=== PATIENT | female | born 1950 | race Caucasian/White ===

== ENCOUNTER → 2024-03-07 13:22 | Outpatient (REF) | payer MEDICARE, SELFPAY ==
[2024-03-07 13:54] LABS: % Basophils 0.5 % (0-2); % Eosinophils 1.5 % (0-6); % Immature Granulocytes 0.3 % (0-0.5); % Lymphocytes 13.1 % (20.5-51.1); % Monocytes 7.7 % (1.7-9.3); % Neutrophils 76.9 % (42.2-75.2); Absolute Basophils 0.1 10^3/uL (0-0.2); Absolute Eosinophils 0.2 10^3/uL (0-0.7); Absolute Lymphocytes 1.4 10^3/uL (1.2-3.4); Absolute Monocytes 0.9 10^3/uL (0.1-0.6); Absolute Neutrophils 8.5 10^3/uL (1.4-6.5); Hematocrit 45.5 % (37.0-47.0); Hemoglobin 15.3 g/dL (12.0-16.0); Mean Corp Hgb Conc. 33.6 g/dL (33.0-37.0); Mean Corpuscular Hgb 31.5 pg (27.0-31.0); Mean Corpuscular Volume 93.8 fL (81.0-99.0); Mean Platelet Volume 10.2 fL (7.4-10.4); Nucleated Red Blood Cells % 0 %; Platelet Count 236 10^3/uL (130-400); Red Blood Cell Count 4.85 10^6/uL (4.20-5.40); Red Cell Dist. Width 13.4 % (11.5-14.5); Urine Albumin Negative (Neg - Trace); Urine Bilirubin Negative (Negative); Urine Character Clear (Clear); Urine Color Yellow; Urine Glucose Negative (Negative); Urine Ketone Trace (Negative); Urine Leukocyte Negative (Negative); Urine Nitrite Negative (Negative); Urine Occult Blood 1+ (Negative); Urine Specific Gravity 1.015 (<1.030); Urine Urobilinogen Negative (Neg - 1+); Urine pH 6.5 (5.0-9.0)
[2024-03-07 14:05] LABS: Blood Urea Nitrogen 21 mg/dl (7-17); Calcium 10.2 mg/dl (8.4-10.2); Carbon Dioxide 29 mmol/L (22-30); Chloride 101 mmol/L (98-107); Glucose 102 mg/dl (70-99); Potassium 4.4 mmol/L (3.5-5.1); Sodium 139 mmol/L (135-145); Urine Bacteria Few (Negative); Urine Red Blood Cell 0-2 /HPF (0-2); Urine White Cell 0-2 /HPF (0-5); eGFR > 60.00
== END ==
LOC: RAD 13:22
PROVIDERS: ATTENDING PHYSICIAN Student in an Organized Health Care Education/Training Program
DX: R10.31 Right lower quadrant pain (principal)
CPT/HCPCS: 36415; 74177; 80069; 81003; 81015; 85025; Q9967

== ENCOUNTER 2024-03-07 19:24 | Inpatient (IN) | payer MEDICARE, SELFPAY ==
[2024-03-07 16:41] VITALS: BP 168/93
--- NOTE | 2024-03-07 17:50 | ED.GENMED ---
History of Present Illness
General
Chief Complaint: Abdominal Pain
Source: patient
Exam Limitations: none
Time Seen by Provider: 03/07/24 17:29
History of Present Illness
History of Present Illness:
73-year-old female 2 days of lower abdominal pain. Moderate in nature. No history of same. Some constipation issues. No response to stool softeners at home. No nausea or vomiting. Had outpatient labs and CT scan. Consistent with stercoral
colitis with pneumatosis. Work for further care.
Past History
Past History
ED Past Medical History: Hypercholesterolemia and Other (Hypogammaglobulinemia)
ED Past Surgical History: None
Review of Systems
Review of Systems
All Other Systems: Not applicable
Constitutional: Denies fever or chills
Phy Exam
Physical Exam
Physical Exam:
GENERAL: Alert and oriented in no apparent distress
EYE: Orbits normal.
NECK: Supple
CARDIAC: Regular rate and rhythm without any obvious murmurs.
LUNGS: Clear breath sounds,normal
ABDOMEN: Soft, moderate diffuse lower abdominal tenderness. No rebound or guarding no mass or hernia
NEUROLOGICAL: Alert and oriented , grossly non-focal
SKIN: Warm and dry, no rash or lesion, no discoloration, skin intact.
MUSCULOSKELETAL: No edema,no deformity.Good color
PSYCH: Normal and appropriate interaction.
Course
Orders/Labs/Results
Orders:
Orders
03/07/24 Dinner
Full Liquids
03/07/24 17:49
IV Insert/Care/Rem.- Treatment PRN
0.9% Sodium Chloride 500 ml [Nss] 500 ml IV BOLUS
Piperacillin/Tazo 3.375 Gram [Zosyn] 3.375 gram in 50 ml IV NOW
03/07/24 18:28
Admit/Transfer Patient As Directed
Co-Sign Provider:
Level of Care: Inpatient admission
Assign to:: Medical/Surgical
Physician / Group: harinder cook
Diagnosis: acute sigmoid colitis
Reason for Hospitalization: sigmoid colitis
Expected length of stay greater than two midnights?: Yes
ELOS- Estimated Length of Stay in days: 4
I certify the patient meets the requirements for IP care: Yes
Code Status As Directed
Resuscitation Status: Full Code
03/07/24 18:31
PRN Pain Medication Management As Directed
May give lesser potent ordered pain med per pt: Yes
preference::
Protocol:: Medication orders for pain may be administered in a
manner that supports deferring to patient preference
when the pt is:
- Requesting an ordered lesser potent pain medication.
Least to most potent pain medications are defined
as: acetaminophen < NSAID < tramadol < opioids
(morphine, oxycodone, hydromorphone).
- Requesting a lesser dose of the same medication IF
ORDERED.
- Requesting a less intrusive route of administration
if both routes are prescribed by the provider (PO <
IV).
03/07/24 18:32
SURGICAL CONSULT Routine
Consulting Provider: Eduar Kamara
Was physician already notified: Yes
Reason for consult: sigmoid colitis
03/07/24 20:32
0.9% Sodium Chloride 1000 ml [Nss] 1,000 ml IV 80 mls/hr
Acetaminophen [Tylenol] 650 mg PO Q4HPRN PRN
03/07/24 20:32
Activity As Directed
Activity Level: As Tolerated
Intake/ Output As Directed
Frequency: Per unit guidelines
Pneumatic Compression Sleeves As Directed
Type: Knee high
Vital Signs As Directed
Frequency: Per unit guidelines
DX Deep Vein Thrombosis Video Routine
03/08/24 02:00
Piperacillin/Tazo 3.375 Gram [Zosyn] 3.375 gram in 50 ml IV Q6H
03/08/24 06:00
Complete Blood Count/With Diff IN AM
Comprehensive Metabolic Panel IN AM
03/08/24 08:00
Ezetimibe [Zetia] 10 mg PO DAILY
Polyethylene Glycol Powder [Miralax] 17 grams PO DAILY
03/09/24 06:00
Complete Blood Count/With Diff IN AM
Comprehensive Metabolic Panel IN AM
03/10/24 06:00
Complete Blood Count/With Diff IN AM
Comprehensive Metabolic Panel IN AM
Vital Signs
Initial and Last Documented VS:
Initial Vital Signs
Temp Pulse Resp BP Pulse Ox
98.6 F 83 18 168/93 98
03/07/24 16:41 03/07/24 16:41 03/07/24 16:41 03/07/24 16:41 03/07/24 16:41
Last Documented Vital Signs
Temp Pulse Resp BP Pulse Ox
100.0 F 83 17 135/83 97
03/07/24 20:33 03/07/24 20:33 03/07/24 20:33 03/07/24 20:33 03/07/24 20:33
MDM/Problems Addressed
Differential Diagnosis Includes:
Stercoral colitis with pneumatosis. Discussed with colorectal. Admit Zosyn MiraLAX.
*Pulse Oximetry
Patient hypoxic: no
*Critical Care Note
Total Time (30-74mins, 75-104mins- exclusive of procedures): Not Applicable
ED Attending Note
-
Portions of this chart may have been created with voice recognition software.� Occasional wrong word or��sound alike� substitutions may have occurred due to the inherent limitations of voice recognition software.
Discharge Plan
Departure
Patient Disposition: Admit
Date of Disposition: 03/07/24
Time of Disposition: 17:51
Presentation/result/management discussed w/ accepting MD/DO: Colorectal
Discharge Problem:
Stercoral colitis with pneumatosis
Interventions
Interventions:
*Risk Screen - Suicide Last Done: 03/07/24 20:41
*General Assessment Last Done: 03/07/24 16:41
*Neglect/Abuse Screening Last Done: 03/07/24 19:11
ED- Fall Risk Assessment Last Done: 03/07/24 19:11
*ED COVID-19 Vaccine History Last Done: 03/07/24 20:41
*Nursing Disposition Last Done: 03/07/24 20:32
JS-Sptygh-Ygkiahxuux Assessment Last Done: 03/07/24 19:11
Discharge Date and Time
Discharge Date/Time: 03/07/24 20:32
--- NOTE | 2024-03-07 18:03 | HPS.HSE ---
Family Physician
-
Family Physician:
Chief Complaint
-
Lower abdominal pain x 2 days
History of Present Illness
73-year-old female complaining of lower abdominal pain over the last 2 days with constipation and no response to MiraLAX x 2 doses at home. She had outpatient CAT scan showing stercoral colitis with pneumatosis and was sent to ER for evaluation.
She denies fever, chills, nausea, vomiting, chest pain, palpitations, shortness breath, cough, urinary symptoms. She reports she has chronic constipation only goes a few rajwinder daily. She has been taking fiber 1 daily. She reports she has never
brought up her constipation issues to her PCP or prior GI in [place]. Her last colonoscopy was in 2019 she states showed diverticulosis otherwise negative. She has past medical history of HLD, hypogammaglobulinemia, constipation, diverticulosis.
Medical History
Past Medical History
Past Medical History: Reports Other
Additional Past Medical History:
HLD
hypogammaglobulinemia
Diverticulosis
constipation
Past Surgical History: Reports Other
Additional Past Surgical History:
microdiscectomy lumbar 1994
Tonsillectomy age 4
Social History
Tobacco: Non-smoker
Alcohol: Occasional (1 to 2 glasses wine a week)
Drug: None
Personal:
Living: With Family ( [place])
Employment: Retired
Family History
Family History: Other (Mother CHF renal disease Alzheimer's age 97, father from grand mal seizure age 90, 1 brother living unsure)
Allergies / Home Medications
Allergies reflects when Allergies were last updated in [facility].
Home Medications with original date entered in [facility]
Allergy/Medication List:
Allergies
Allergy/AdvReac Type Severity Reaction Status Date / Time
No Known Allergies Allergy Unverified 03/07/24 16:41
Home Medications
atorvastatin 80 mg tablet 80 mg PO DAILY 03/07/24
ezetimibe 10 mg tablet 10 mg PO DAILY 03/07/24
loperamide 2 mg tablet (Imodium A-D) 1 mg PO DAILY 03/07/24
rcyrmgra-uluh-fftj 8 mg-folic 400 mcg-K 50 mcg-lutein 300 mcg tablet (Centrum Silver Women) 1 tab PO DAILY 03/07/24
polyethylene glycol 3350 17 gram oral powder packet (Miralax) 17 g PO DAILYPRN PRN constipation 03/07/24
Review of Systems
-
History Source: Patient
A 12 point ROS was completed and negative except as noted: Yes
Constitutional: Denies Fever or Chills
EENT: Denies Sore Throat or Runny Nose
Respiratory: Denies Cough or Trouble Breathing
Cardiac: Denies Chest Pain or Diaphoresis
Abdomen/GI: Reports Abdominal Pain (Left lower quadrant, suprapubic) and Constipated; Denies Nausea, Vomiting or Diarrhea
: Denies Dysuria, Frequency, Flank Pain or Incontinence
Musculoskeletal: Denies Joint Pain or Edema
Skin: Denies Itching or Rash
Neurological: Denies Dizzy or Headache
Endocrine: Reports No Symptoms
Hematologic/Lymphatic: Reports No Symptoms
Psych: Reports Calm
Physical Exam
Vital Signs
Vital Signs
Temp Pulse Resp BP Pulse Ox
98.6 F 83 18 168/93 98
03/07/24 16:41 03/07/24 16:41 03/07/24 16:41 03/07/24 16:41 03/07/24 16:41
Physical Exam
General: Comfortable and Conversant; No Pain, Fever or Chills
HEENT: NormoCephalic, Anicteric, Moist mucous membranes, PERRLA and Schwana Conjunctivae
Respiratory: Clear; No Wheezes, Rales or Rhonchi
Cardiac: S1/S2 and Regular Rhythm; No Murmur, Rub, Gallop or Peripheral Edema
Breast: Deferred by me
GI: Soft, Non Distended, Normal Bowel Sounds, Tender (Left lower quadrant, suprapubic) and No Hepatosplenomegaly
Rectal: Deferred by Provider
Genito-urinary: Deferred by me
Musculoskeletal: No Clubbing, No Cyanosis and No Edema
Skin: Warm and Dry; No Rash or Jaundice
Neuro: AO x 3, No Motor Deficits, Nonfocal/grossly intact, Cranial Nerves Intact and No Sensory Deficits; No Slurred Speech, Facial Droop or Tremors
Psych: Calm
Impression/Plan
-
Impression/plan:
Admit to MedSurg
#Acute stercoral colitis sigmoid colon
HX constipation - pt never has discussed with pcp or prior GI
WBC 11 with left shift, afebrile, normotensive
-Consult Dr. Kamara
-IV Zosyn
-Iv NSS
-MiraLAX per colorectal recommendation
pt has been taking miralax daily x 2 days no improvement
-pt advised to stop taking immodium routinely this is causing her constipation
last colonoscopy9 [place] [facility]) was in 2019 she states showed diverticulosis otherwise negative.
CT abdomen pelvis with IV contrast:
1. Large amount of fecal material throughout the sigmoid colon with a long segment of moderate circumferential wall thickening and
pericolonic inflammation. Possible mild pneumatosis in the colonic wall. The findings are most suggestive of
ACUTE STERCORAL COLITIS in the SIGMOID COLON. Acute diverticulitis or an acute infectious colitis are alternative diagnostic possibilities.
2. Severe left-sided pelvic congestion syndrome with marked distention of the left ovarian vein.
3. Multiple benign-appearing hepatic and left renal cysts.
4. Moderate to severe chronic discogenic degenerative disease at L5/S1.
#HLD
Continue atorvastatin 80 mg daily, Zetia 10 mg daily
#Hypogammaglobulinemia hx
#Moderate to severe DDD L5-S1 per CT
-History of microdiscectomy lumbar 1994
DVT prophylaxis
SCD's
Full code
--- NOTE | 2024-03-07 18:25 | W.PN.UPDATE ---
Update Note
Progress Note Update
This note serves as an addendum to the H&P by helminthologist MELLO Flor SAM,
HPI
73F HLD, hypogammaglobulinemia pw lower abdominal pain over the last 2 days with constipation and no response to stool softeners at home.
ROS: denies fever, chills, nausea, vomitingt medical history of
Vital Signs
Temp Pulse Resp BP Pulse Ox
98.6 F 83 18 168/93 98
03/07/24 16:41 03/07/24 16:41 03/07/24 16:41 03/07/24 16:41 03/07/24 16:41
CTT abdomen pelvis with IV contrast:
1. Large amount of fecal material throughout the sigmoid colon with a long segment of moderate circumferential wall thickening and pericolonic inflammation. Possible mild pneumatosis in the colonic wall. The findings are most suggestive of ACUTE
STERCORAL COLITIS in the SIGMOID COLON.
Acute diverticulitis or an acute infectious colitis are alternative diagnostic possibilities.
2. Severe left-sided pelvic congestion syndrome with marked distention of the left ovarian vein.
3. Multiple benign-appearing hepatic and left renal cysts.
4. Moderate to severe chronic discogenic degenerative disease at L5/S1.
A/P
Acute stercoral colitis sigmoid colon
Afebrile, normotensive
WBC 11 with left shift
- IV Zosyn
- MiraLAX per colorectal recommendation
- IVF
- CRS consult
DVT Px: SCD
Full code
IP MS
[2024-03-07 19:11] VITALS: BMI 21.5
[2024-03-07] MEDS: ZOSYN 50 IV (20:12)
[2024-03-07] MEDS: NSS 500 IV (20:17)
[2024-03-07 20:33] VITALS: BP 135/83; BMI 20.4
[2024-03-07] MEDS: NSS 1000 IV (21:09)
[2024-03-07] MEDS: TYLENOL 650 MG PO (21:15)
[2024-03-07 23:14] VITALS: BP 116/71
--- NOTE | 2024-03-07 23:16 | PTCARENOTE ---
pt transported from ED to 3W on stretcher. Pt independent from stretcher to bed, all vitals obtained and stable. Pt AAOX3, oriented to room, call james within reach, pleasant and cooperative. Will continue to monitor.
[2024-03-08] MEDS: ZOSYN 50 IV ×4 (02:25→20:02)
[2024-03-08 07:46] VITALS: BP 131/77
[2024-03-08 08:32] LABS: % Basophils 0.4 % (0-2); % Eosinophils 2.7 % (0-6); % Immature Granulocytes 0.4 % (0-0.5); % Lymphocytes 13.8 % (20.5-51.1); % Monocytes 7.9 % (1.7-9.3); % Neutrophils 74.8 % (42.2-75.2); Absolute Eosinophils 0.2 10^3/uL (0-0.7); Absolute Lymphocytes 1.1 10^3/uL (1.2-3.4); Absolute Monocytes 0.6 10^3/uL (0.1-0.6); Absolute Neutrophils 5.8 10^3/uL (1.4-6.5); Hematocrit 39.1 % (37.0-47.0); Hemoglobin 13.4 g/dL (12.0-16.0); Mean Corp Hgb Conc. 34.3 g/dL (33.0-37.0); Mean Corpuscular Hgb 31.8 pg (27.0-31.0); Mean Corpuscular Volume 92.9 fL (81.0-99.0); Mean Platelet Volume 10.7 fL (7.4-10.4); Nucleated Red Blood Cells % 0 %; Platelet Count 191 10^3/uL (130-400); Red Blood Cell Count 4.21 10^6/uL (4.20-5.40); Red Cell Dist. Width 13.5 % (11.5-14.5); White Blood Cell Count 7.8 10^3/uL (4.8-10.8)
[2024-03-08] MEDS: ZETIA 10 MG PO (08:47)
[2024-03-08] MEDS: MIRALAX 17 GRAMS PO ×2 (08:47→20:02)
[2024-03-08 08:58] LABS: ALT (SGPT) 26 U/L (0-35); AST (SGOT) 32 U/L (14-36); Albumin 3.9 g/dl (3.5-5.0); Alkaline Phosphatase 58 U/L (38-126); Blood Urea Nitrogen 13 mg/dl (7-17); Calcium 9.3 mg/dl (8.4-10.2); Carbon Dioxide 23 mmol/L (22-30); Chloride 107 mmol/L (98-107); Estimated Creatinine Clearance 66 ml/min; Glucose 70 mg/dl (70-99); Potassium 4.2 mmol/L (3.5-5.1); Sodium 143 mmol/L (135-145); Total Bilirubin 1.7 mg/dl (0.2-1.3); Total Protein 5.8 g/dl (6.3-8.2); eGFR > 60.00
[2024-03-08] MEDS: NSS 1000 IV ×2 (10:53→20:19)
[2024-03-08] MEDS: TYLENOL 650 MG PO (10:58)
--- NOTE | 2024-03-08 11:35 | CON.GS ---
Addendum entered and electronically signed by Tian Ayoub MD 03/08/24 16:26:
Patient seen and examined.
Patient is a 73 yo F with a PMH of HLD, hypogammaglobulinemia, and s/p lumbar microdiscectomy who presented to the ER with lower abdominal discomfort and severe constipation. Chronic issues with constipation. She denies taking regular stool
softeners. She does admit to intermittent Imodium use. She does report using fiber. Symptoms began approximately 2 days ago. Her last bowel movement was approximately 3 days ago. She tried MiraLAX at home without any improvement. She denies
any nausea or vomiting. She currently denies any worsening abdominal pain. She is passing flatus. She denies any bloody stools. Last colonoscopy was a few years ago and reported to be normal.
Gen: NAD
Abd: soft, NT/ND, non-peritoneal
Rectal: no masses or hemorrhoids, release of air, unable to disimpact or remove any stool within rectal vault, herder stool barely appreciated more proximally, small release of soft stool on exit
Patient is a 73 yo F presenting with stercoral colitis
Clinically stable. Low grade temp of 100.0. Initially with mild leukocytosis which is now resolved. Abdominal discomfort present but minimal. Attempted disimpaction at bedside but no stool noted in rectal vault. Recommend aggressive bowel regimen.
Role of surgical intervention for perforation was briefly reviewed.
--OK for liquid diet
--Continue ABX
--Give soapsuds enema, discussed with patient's nurse
--MOM x1 dose now and later this evening and Miralax BID
--Analgesics as needed
--Will follow
Original Note:
Consultation
-
Date/Time Consultation Requested: 03/07/242212
Requesting Provider: Danae
Reason for Consultation: sigmoid colitis
Medical History
-
Chief Complaint: lower abdominal pain
History of Present Illness:
Ms Mercer is a 73 yo female with a h/o hypogammaglobulinemia with last colonoscopy done in 2014 which she reports was benign other than diverticulosis who presented through the ED yesterday with lower abdominal pain and constipation. She notes that
her last BM was 3 days ago and small and hard. She has been passing flatus. She does note baseline issues with constipation and reports using FiberOne. She has additionally been taking Miralax daily at home for the 2-3 days leading up to her
admission without much benefit. She had outpatient CT imaging yesterday with stercoral colitis noted and was advised to present for evaluation given these findings. Overnight, she had a low grade temp of 100.0, otherwise no fevers or chills. She
reports some lower abdominal pain which is consistently about a 3/10 and improved with tylenol but does every once in a while have more severe sharp pains across the abdomen. She denies nausea or vomiting.
Past Medical History
Past Medical History: Hypercholesterolemia and Other (hypogammaglobulinemia)
Past Surgical History: Orthopedic (lumbar microdiscectomy 1994) and Tonsilectomy
Social History
Tobacco: Non-Smoker
Alcohol: Occasional
Drug: None
Personal:
Living: With Family
Family History
Family History: Reviewed & Not Pertinent
Allergies / Home Medications
Allergy/AdvReac Type Severity Reaction Status Date / Time
No Known Allergies Allergy Unverified 03/07/24 16:41
�Medication �Instructions �Recorded �Confirmed �Type
atorvastatin 80 mg tablet 80 mg PO DAILY High Cholesterol 03/07/24 03/07/24 History
ezetimibe 10 mg tablet 10 mg PO DAILY High Cholesterol 03/07/24 03/07/24 History
loperamide 2 mg tablet (Imodium 1 mg PO DAILY diarrhea 03/07/24 03/07/24 History
A-D)
fvdjxjrm-yjpc-xaec 8 mg-folic 400 1 tab PO DAILY Supplement 03/07/24 03/07/24 History
mcg-K 50 mcg-lutein 300 mcg tablet
(Centrum Silver Women)
polyethylene glycol 3350 17 gram 17 g PO DAILYPRN PRN constipation 03/07/24 03/07/24 History
oral powder packet (Miralax)
Review of Systems
-
History Source: Patient and Family
All other systems: Negative unless noted
A 10 point review of systems was completed, and was negative except as per HPI.
Physical Exam
Vital Signs
Temp Pulse Resp BP Pulse Ox
98.1 F 73 19 131/77 97
03/08/24 07:46 03/08/24 07:46 03/08/24 07:46 03/08/24 07:46 03/08/24 08:00
03/07/24 03/08/24 03/09/24
06:59 06:59 06:59
Actual Weight 57.351 kg
Body Mass Index (BMI) 20.4
Lab Results
03/08/24 06:43
03/08/24 06:43
WBC 7.8 10^3/uL (4.8-10.8) 03/08/24 06:43
Hgb 13.4 g/dL (12.0-16.0) 03/08/24 06:43
Hct 39.1 % (37.0-47.0) 03/08/24 06:43
Plt Count 191 10^3/uL (130-400) 03/08/24 06:43
Abs Immat Gran (auto) 0.0 10^3/uL (0-0.05) 03/08/24 06:43
Neutrophils % 74.8 % (42.2-75.2) 03/08/24 06:43
Physical Exam
General: Well Developed and Well Nourished
HEENT: Moist Mucous Membranes
Respiratory: Non Labored Respirations
GI: Soft, Non Tender and Distended (minimal)
Rectal: Brown and Other (no significant stool in rectal vault); Negative Masses Palpated
Skin: Warm and Dry
Neuro: Awake and Alert
Psych: Calm
Data Reviewed
-
CT Scan: Image Personally Visualized and interpreted, Report Reviewed by me, Discussed with Physician, Discussed with Patient and Discussed with Family
Labs: Labs Reviewed by me, Discussed with Physician, Discussed with Patient and Discussed with Family
Old Records: Reviewed
Assessment / Plan
-
73 yo female presenting with constipation and lower abdominal pain with last BM 3 days ago with outpatient CT imaging demonstrating concern for stercoral colitis with significant stool burden. Low grade temp of 100.0. Initially with mild
leukocytosis which is now resolved. Abdominal discomfort present but minimal. Attempted disimpaction at bedside but no stool noted in rectal vault.
--Ok for liquid diet
--Continue ABX
--Give soapsuds enema, discussed with patient's nurse
--MOM x1 dose now and Miralax BID
--Analgesics as needed
--Will follow
--- NOTE | 2024-03-08 14:28 | W.PN.HOSP.TC ---
Today's Communication/Plan
-
Continue Miralax per Colorectal Surgery team
Continue antibiotics
Appreciate colorectal surgery evaluation
Assessment / Plan
Assessment / Plan
Physical Exam
General: Not in acute distress
HEENT: Normocephalic
Respiratory: CTAB
Cardiac: S1/S2 and Regular Rhythm
GI: Soft, Non Distended, Normal Bowel Sounds, Tender (Left lower quadrant, suprapubic)
Musculoskeletal: No Cyanosis and No Edema
Skin: Warm and Dry
Neuro: AAO x 3, Nonfocal/grossly intact
Psych: Calm
Assessment/Plan
73-year-old female with history of chronic constipation, presented complaining of lower abdominal pain over the 2 days (prior to presentation) with constipation and no response to MiraLAX x 2 doses at home. She had outpatient CAT scan showing
stercoral colitis with pneumatosis and was sent to the ER for evaluation. She has past medical history of HLD, hypogammaglobulinemia, constipation, diverticulosis.
#Presentation with Constipation and no response to stool softeners at home
#Acute stercoral colitis sigmoid colon
#History of constipation - pt never has discussed with pcp or prior GI
#History of Diverticulosis
-Consulted Dr. Kamara, appreciate evaluation and recommendations
-Continue IV Zosyn
-Diet: Full Liquids and as per colorectal surgery
-MiraLAX per colorectal surgery recommendations
-Patient advised to stop taking Imodium routinely this is causing her constipation
last colonoscopy9 [facility]) was in 2019 she states showed diverticulosis otherwise negative.
CT abdomen pelvis with IV contrast (as per radiologist's report):
1. Large amount of fecal material throughout the sigmoid colon with a long segment of moderate circumferential wall thickening and
pericolonic inflammation. Possible mild pneumatosis in the colonic wall. The findings are most suggestive of
ACUTE STERCORAL COLITIS in the SIGMOID COLON. Acute diverticulitis or an acute infectious colitis are alternative diagnostic possibilities.
2. Severe left-sided pelvic congestion syndrome with marked distention of the left ovarian vein.
3. Multiple benign-appearing hepatic and left renal cysts.
4. Moderate to severe chronic discogenic degenerative disease at L5/S1.
#Hyperlipidemia
-Continue atorvastatin 80 mg daily, Zetia 10 mg daily
#History of Hypogammaglobulinemia
#Moderate to severe DDD L5-S1 per CT
-History of microdiscectomy lumbar 1994
DVT Prophylaxis: Lovenox and SCD's
Code Status: Full code
Anticipated Discharge: > 48 hours
Subjective/Interval History
-
Date of Service: March 08, 2024
Patient was seen and examined. She still has lower abdominal tenderness and some pain, maybe improved.
Objective Data
-
Labs:
Laboratory Results
03/08/24
06:43
WBC 7.8
Hgb 13.4
Hct 39.1
Plt Count 191
Sodium 143
Potassium 4.2
Chloride 107
Carbon Dioxide 23
BUN 13
Creatinine 0.7
Glucose 70
Calcium 9.3
Total Bilirubin 1.7 H
AST 32
ALT 26
Alkaline Phosphatase 58
Vital Signs:
Vital Signs
Temp Pulse Resp BP Pulse Ox
98.1 F 73 19 131/77 97
03/08/24 07:46 03/08/24 07:46 03/08/24 07:46 03/08/24 07:46 03/08/24 08:00
I&O
03/07/24 03/08/24 03/09/24
06:59 06:59 06:59
Intake Total 480 / 480
Balance 480 / 480
[2024-03-08 15:09] VITALS: BP 134/81
[2024-03-08] MEDS: LIPITOR 80 MG PO (15:24)
[2024-03-08] MEDS: MILK OF MAGNESIA 30 ML PO (15:24)
[2024-03-08] MEDS: THERAGRAN 1 TABLET PO (15:24)
[2024-03-08] MEDS: LOVENOX 40 MG SC (17:31)
[2024-03-08 18:00] VITALS: BP 137/81
[2024-03-08 23:08] VITALS: BP 133/76
[2024-03-09] MEDS: ZOSYN 50 IV ×4 (01:11→19:33)
[2024-03-09] MEDS: TYLENOL 650 MG PO (01:14)
[2024-03-09 07:28] LABS: % Basophils 0.7 % (0-2); % Eosinophils 2.5 % (0-6); % Immature Granulocytes 0.3 % (0-0.5); % Monocytes 7.3 % (1.7-9.3); % Neutrophils 71.2 % (42.2-75.2); Absolute Basophils 0.1 10^3/uL (0-0.2); Absolute Eosinophils 0.2 10^3/uL (0-0.7); Absolute Lymphocytes 1.4 10^3/uL (1.2-3.4); Absolute Monocytes 0.6 10^3/uL (0.1-0.6); Absolute Neutrophils 5.4 10^3/uL (1.4-6.5); Hematocrit 38.7 % (37.0-47.0); Hemoglobin 13.3 g/dL (12.0-16.0); Mean Corp Hgb Conc. 34.4 g/dL (33.0-37.0); Mean Corpuscular Hgb 31.7 pg (27.0-31.0); Mean Corpuscular Volume 92.4 fL (81.0-99.0); Mean Platelet Volume 10.9 fL (7.4-10.4); Nucleated Red Blood Cells % 0 %; Platelet Count 203 10^3/uL (130-400); Red Blood Cell Count 4.19 10^6/uL (4.20-5.40); Red Cell Dist. Width 13.2 % (11.5-14.5); White Blood Cell Count 7.5 10^3/uL (4.8-10.8)
[2024-03-09] MEDS: ZETIA 10 MG PO (07:40)
[2024-03-09] MEDS: THERAGRAN 1 TABLET PO (07:40)
[2024-03-09] MEDS: LIPITOR 80 MG PO (07:40)
[2024-03-09] MEDS: MIRALAX 17 GRAMS PO (07:40)
[2024-03-09 07:47] LABS: ALT (SGPT) 29 U/L (0-35); AST (SGOT) 38 U/L (14-36); Albumin 3.8 g/dl (3.5-5.0); Alkaline Phosphatase 60 U/L (38-126); Blood Urea Nitrogen 12 mg/dl (7-17); Calcium 9.2 mg/dl (8.4-10.2); Carbon Dioxide 25 mmol/L (22-30); Chloride 107 mmol/L (98-107); Estimated Creatinine Clearance 58 ml/min; Glucose 78 mg/dl (70-99); Potassium 4.2 mmol/L (3.5-5.1); Sodium 141 mmol/L (135-145); Total Bilirubin 1.3 mg/dl (0.2-1.3); Total Protein 5.6 g/dl (6.3-8.2); eGFR > 60.00
[2024-03-09 07:52] VITALS: BP 132/79
[2024-03-09] MEDS: NULYTELY SOLUTION 2 LITERS PO (10:01)
[2024-03-09] MEDS: NSS 1000 IV (10:04)
--- NOTE | 2024-03-09 10:19 | W.PN.GS2 ---
Addendum entered and electronically signed by Tian Ayoub MD 03/09/24 10:43:
Patient seen and examined. Agree with assessment as document below.
Stable and slightly improved. Passing flatus, crampy abdominal pain noted prior to release of gas. No worsening abdominal pain. No nausea or vomiting. Passing some small loose stools. Afebrile.
Gen: NAD
Abd: soft, mild/minimal tenderness, ND, non-peritoneal
Patient is a 73 yo F p/w stercoral colitis noted on outpatient imaging.
Leukocytosis resolved.
AFVSS.
Pain present but improving.
Passing some small stools s/p several doses of Miralax, MOM and soap suds enema.
--Will give 2L of Golytely and follow
--Continue ABX and follow abdominal exams
--C/W FLD until passing more stools
--Medical management as per primary team
Original Note:
Today's Communication / Plan
-
Golytely prep
Assessment / Plan
-
Ms Mercer is a 73 yo female presenting with stercoral colitis noted on outpatient imaging.
Leukocytosis resolved.
AFVSS.
Pain present but improving.
Passing some small stools s/p several doses of miralax, mom and soap suds enema.
--Will give 2L of Golytely and follow
--Continue ABX and follow abdominal exams
--C/W FLD until passing more stools
--Medical management as per primary team
Subjective Data
-
Date of Service: March 09, 2024
Patient seen and examined at bedside with Dr. Ayoub. Denies n/v. Passed some small stools since last night. Intermittent sharp abdominal pains with lower abdominal cramping still present but improved from previous. Passing flatus.
Objective Data
-
Intake and Output
03/08/24 03/09/24 03/10/24
06:59 06:59 06:59
Intake Total 480 / 480 1050 / 1050
Balance 480 / 480 1050 / 1050
Intake:
Oral fluids 480 / 480 1050 / 1050
Other:
Number of approximated MODERATE 1 2
amounts of urine
How many times incontinent 1
SMALL amount urine
Vital Signs
Temp Pulse Resp BP Pulse Ox
98 F 69 20 132/79 96
03/09/24 07:52 03/09/24 07:52 03/09/24 07:52 03/09/24 07:52 03/09/24 07:52
Lab Results
03/09/24 06:09
03/09/24 06:09
Calcium 9.2 mg/dl (8.4-10.2) 03/09/24 06:09
Total Bilirubin 1.3 mg/dl (0.2-1.3) 03/09/24 06:09
AST 38 U/L (14-36) H 03/09/24 06:09
ALT 29 U/L (0-35) 03/09/24 06:09
Alkaline Phosphatase 60 U/L (38-126) 03/09/24 06:09
Total Protein 5.6 g/dl (6.3-8.2) L 03/09/24 06:09
Albumin 3.8 g/dl (3.5-5.0) 03/09/24 06:09
Physical Exam
-
NAD
ABD soft, mild distention, mild tenderness. Non peritoneal.
--- NOTE | 2024-03-09 12:04 | W.PN.HOSP.TC ---
Today's Communication/Plan
-
Golytely today and continue full liquids diet until passing more stools
Hopefully patient continues to improve, passes more stool, and can discharge tomorrow
Assessment / Plan
Assessment / Plan
Physical Exam
General: Not in acute distress
HEENT: Normocephalic
Respiratory: CTAB
Cardiac: S1/S2 and Regular Rhythm
GI: Soft, Non Distended, Normal Bowel Sounds, Mildly Tender
Musculoskeletal: No Cyanosis and No Edema
Skin: Warm and Dry
Neuro: AAO x 3, Nonfocal/grossly intact
Psych: Calm
Assessment/Plan
73-year-old female with history of chronic constipation, presented complaining of lower abdominal pain over the 2 days (prior to presentation) with constipation and no response to MiraLAX x 2 doses at home. She had outpatient CAT scan showing
stercoral colitis with pneumatosis and was sent to the ER for evaluation. She has past medical history of HLD, hypogammaglobulinemia, constipation, diverticulosis.
#Presentation with Constipation and no response to stool softeners at home
#Acute stercoral colitis sigmoid colon
#History of constipation - pt never has discussed with pcp or prior GI
#History of Diverticulosis
-Consulted colorectal surgery, appreciate evaluation and recommendations
-Continue IV Zosyn
-Diet: Full Liquids and as per colorectal surgery until passing more stools
-MiraLAX per colorectal surgery recommendations
-2L of Golytely on 03/09/24
-Patient advised to stop taking Imodium routinely this is causing her constipation
last colonoscopy9 [facility]) was in 2019 she states showed diverticulosis otherwise negative.
CT abdomen pelvis with IV contrast (as per radiologist's report):
1. Large amount of fecal material throughout the sigmoid colon with a long segment of moderate circumferential wall thickening and
pericolonic inflammation. Possible mild pneumatosis in the colonic wall. The findings are most suggestive of
ACUTE STERCORAL COLITIS in the SIGMOID COLON. Acute diverticulitis or an acute infectious colitis are alternative diagnostic possibilities.
2. Severe left-sided pelvic congestion syndrome with marked distention of the left ovarian vein.
3. Multiple benign-appearing hepatic and left renal cysts.
4. Moderate to severe chronic discogenic degenerative disease at L5/S1.
#Hyperlipidemia
-Continue atorvastatin 80 mg daily, Zetia 10 mg daily
#History of Hypogammaglobulinemia
#Moderate to severe DDD L5-S1 per CT
-History of microdiscectomy lumbar 1994
DVT Prophylaxis: Lovenox and SCD's
Code Status: Full code
Anticipated Discharge: Within 24 hours
Subjective/Interval History
-
Date of Service: March 09, 2024
Patient was seen and examined. She reported her abdominal pain is better, she is passing gas, and a small amount of stools.
Objective Data
-
Labs:
Laboratory Results
03/09/24
06:09
WBC 7.5
Hgb 13.3
Hct 38.7
Plt Count 203
Sodium 141
Potassium 4.2
Chloride 107
Carbon Dioxide 25
BUN 12
Creatinine 0.8
Glucose 78
Calcium 9.2
Total Bilirubin 1.3
AST 38 H
ALT 29
Alkaline Phosphatase 60
Vital Signs:
Vital Signs
Temp Pulse Resp BP Pulse Ox
98 F 69 20 132/79 96
03/09/24 07:52 03/09/24 07:52 03/09/24 07:52 03/09/24 07:52 03/09/24 07:52
I&O
03/08/24 03/09/24 03/10/24
06:59 06:59 06:59
Intake Total 480 / 480 1050 / 1050
Balance 480 / 480 1050 / 1050
[2024-03-09 15:49] VITALS: BP 114/68
[2024-03-09] MEDS: LOVENOX 40 MG SC (17:17)
[2024-03-09 23:00] VITALS: BP 118/69
[2024-03-10] MEDS: NSS 1000 IV (01:15)
[2024-03-10] MEDS: ZOSYN 50 IV ×2 (01:15→07:20)
[2024-03-10 06:12] LABS: % Basophils 0.9 % (0-2); % Eosinophils 5.1 % (0-6); % Immature Granulocytes 0.2 % (0-0.5); % Lymphocytes 30.8 % (20.5-51.1); % Monocytes 9.8 % (1.7-9.3); % Neutrophils 53.2 % (42.2-75.2); Absolute Eosinophils 0.2 10^3/uL (0-0.7); Absolute Lymphocytes 1.3 10^3/uL (1.2-3.4); Absolute Monocytes 0.4 10^3/uL (0.1-0.6); Absolute Neutrophils 2.3 10^3/uL (1.4-6.5); Mean Corp Hgb Conc. 34.3 g/dL (33.0-37.0); Mean Corpuscular Hgb 30.5 pg (27.0-31.0); Mean Corpuscular Volume 88.8 fL (81.0-99.0); Mean Platelet Volume 10.3 fL (7.4-10.4); Nucleated Red Blood Cells % 0 %; Platelet Count 195 10^3/uL (130-400); Red Blood Cell Count 3.94 10^6/uL (4.20-5.40); Red Cell Dist. Width 13.1 % (11.5-14.5); White Blood Cell Count 4.3 10^3/uL (4.8-10.8)
[2024-03-10 06:33] LABS: ALT (SGPT) 40 U/L (0-35); AST (SGOT) 45 U/L (14-36); Albumin 3.4 g/dl (3.5-5.0); Alkaline Phosphatase 60 U/L (38-126); Blood Urea Nitrogen 9 mg/dl (7-17); Calcium 9.1 mg/dl (8.4-10.2); Carbon Dioxide 22 mmol/L (22-30); Chloride 111 mmol/L (98-107); Estimated Creatinine Clearance 66 ml/min; Glucose 82 mg/dl (70-99); Phosphorus 4.1 mg/dl (2.5-4.5); Potassium 3.9 mmol/L (3.5-5.1); Sodium 144 mmol/L (135-145); Total Protein 5.4 g/dl (6.3-8.2); eGFR > 60.00
[2024-03-10 07:00] VITALS: BP 124/68
[2024-03-10] MEDS: LIPITOR 80 MG PO (07:20)
[2024-03-10] MEDS: ZETIA 10 MG PO (07:20)
[2024-03-10] MEDS: THERAGRAN 1 TABLET PO (07:20)
[2024-03-10] MEDS: MIRALAX PO (07:23)
--- NOTE | 2024-03-10 09:50 | W.PN.HOSP.TC ---
Today's Communication/Plan
-
dc if tolerates diet
Assessment / Plan
Assessment / Plan
Physical Exam
General: Not in acute distress
HEENT: Normocephalic
Respiratory: CTAB
Cardiac: S1/S2 and Regular Rhythm
GI: Soft, Non Distended, Normal Bowel Sounds, Mildly Tender
Musculoskeletal: No Cyanosis and No Edema
Skin: Warm and Dry
Neuro: AAO x 3, Nonfocal/grossly intact
Psych: Calm
Assessment/Plan
73-year-old female with history of chronic constipation, presented complaining of lower abdominal pain over the 2 days (prior to presentation) with constipation and no response to MiraLAX x 2 doses at home. She had outpatient CAT scan showing
stercoral colitis with pneumatosis and was sent to the ER for evaluation. She has past medical history of HLD, hypogammaglobulinemia, constipation, diverticulosis.
#Presentation with Constipation and no response to stool softeners at home
#Acute stercoral colitis sigmoid colon
#History of constipation - pt never has discussed with pcp or prior GI
#History of Diverticulosis
-Consulted colorectal surgery, appreciate evaluation and recommendations
-s/p IV Zosyn
- tolerated Diet: Full Liquids, advance to low residue
-MiraLAX per colorectal surgery recommendations
-s/p 2L of Golytely on 03/09/24
-Patient advised to stop taking Imodium routinely this is causing her constipation
last colonoscopy9 [facility]) was in 2019 she states showed diverticulosis otherwise negative.
CT abdomen pelvis with IV contrast (as per radiologist's report):
1. Large amount of fecal material throughout the sigmoid colon with a long segment of moderate circumferential wall thickening and
pericolonic inflammation. Possible mild pneumatosis in the colonic wall. The findings are most suggestive of
ACUTE STERCORAL COLITIS in the SIGMOID COLON. Acute diverticulitis or an acute infectious colitis are alternative diagnostic possibilities.
2. Severe left-sided pelvic congestion syndrome with marked distention of the left ovarian vein.
3. Multiple benign-appearing hepatic and left renal cysts.
4. Moderate to severe chronic discogenic degenerative disease at L5/S1.
#Hyperlipidemia
-Continue atorvastatin 80 mg daily, Zetia 10 mg daily
#History of Hypogammaglobulinemia
#Moderate to severe DDD L5-S1 per CT
-History of microdiscectomy lumbar 1994
DVT Prophylaxis: Lovenox and SCD's
Code Status: Full code
Total discharge time spent to see the patient, examine the patient on the floor, review data and lab results, discuss discharge plan with patient, nursing staff around 65 minutes
Anticipated Discharge: Today
Subjective/Interval History
-
Date of Service: March 10, 2024
She feels better
She wants to go home
No abd pain, would like to eat regular diet
Objective Data
-
Labs:
Laboratory Results
03/10/24
05:58
WBC 4.3 L
Hgb 12.0
Hct 35.0 L
Plt Count 195
Sodium 144
Potassium 3.9
Chloride 111 H
Carbon Dioxide 22
BUN 9
Creatinine 0.7
Glucose 82
Calcium 9.1
Total Bilirubin 1.0
AST 45 H
ALT 40 H
Alkaline Phosphatase 60
Vital Signs:
Vital Signs
Temp Pulse Resp BP Pulse Ox
98.6 F 56 18 124/68 100
03/10/24 07:00 03/10/24 07:00 03/10/24 07:00 03/10/24 07:00 03/10/24 07:00
I&O
03/09/24 03/10/24 03/11/24
06:59 06:59 06:59
Intake Total 1050 / 1050 1080 / 1080 1380 / 1380
Balance 1050 / 1050 1080 / 1080 1380 / 1380
--- NOTE | 2024-03-10 10:07 | PTOTSP ---
PATIENT MOBILIZING INDEPENDENTLY ON LEVEL SURFACES WELL ELEVATIONS REQUIRING NO FURTHER ACUTE CARE P.T. AT THIS TIME. ENCOURAGED PATIENT TO CONTINUE TO AMBULATION HALLS AND PATIENT AGREEABLE. WILL DISCHARGE FROM P.T. SERVICES.
--- NOTE | 2024-03-10 10:15 | PTOTSP ---
pt currently demonstrates ability to complete simple ADLs, functional transfers, ambulation with supervision to no assistance. no acute OT needs identified at this time, will sign off.
--- NOTE | 2024-03-10 10:16 | W.PN.GS2 ---
Addendum entered and electronically signed by Sharan Stockton MD 03/10/24 12:23:
X-ray reviewed, still some air in the proximal colon but no air-fluid levels and no significant stool burden noted.
As the patient is clinically improved, okay to DC today per primary.
Original Note:
Today's Communication / Plan
-
Will get an a.m. chest x-ray to assess for any residual stool burden
Recommend Colace/senna daily for the next week followed by maintenance MiraLAX.
Okay to stop antibiotics per primary
Can liberalize diet.
Dispo planning
Assessment / Plan
-
Ms Mercer is a 73 yo female presenting with stercoral colitis noted on outpatient imaging.
Leukocytosis resolved.
AFVSS.
Pain improved with more robust return of bowel function.
Will get an a.m. chest x-ray to assess for any residual stool burden
Recommend Colace/senna daily for the next week followed by maintenance MiraLAX.
Okay to stop antibiotics per primary
Can liberalize diet.
Dispo planning
Time Spent
Total Time Spent with Patient (in minutes): 20
Subjective Data
-
Date of Service: March 10, 2024
Interval Events:
No acute events overnight. Slept well. Pain improved. Has return of bowel function, tolerating diet.
Objective Data
-
Intake and Output
03/09/24 03/10/24 03/11/24
06:59 06:59 06:59
Intake Total 1050 / 1050 1080 / 1080 1380 / 1380
Balance 1050 / 1050 1080 / 1080 1380 / 1380
Intake:
Oral fluids 1050 / 1050 1080 / 1080 480 / 480
IV fluids (Total) 800 / 800
IV piggybacks 100 / 100
Other:
Number of approximated MODERATE 2 7 3
amounts of urine
How many times incontinent 1
SMALL amount urine
Vital Signs
Temp Pulse Resp BP Pulse Ox
98.6 F 56 18 124/68 100
03/10/24 07:00 03/10/24 07:00 03/10/24 07:00 03/10/24 07:00 03/10/24 07:00
Lab Results
03/10/24 05:58
03/10/24 05:58
Calcium 9.1 mg/dl (8.4-10.2) 03/10/24 05:58
Phosphorus 4.1 mg/dl (2.5-4.5) 03/10/24 05:58
Magnesium 2.0 mg/dl (1.6-2.3) 03/10/24 05:58
Total Bilirubin 1.0 mg/dl (0.2-1.3) 03/10/24 05:58
AST 45 U/L (14-36) H 03/10/24 05:58
ALT 40 U/L (0-35) H 03/10/24 05:58
Alkaline Phosphatase 60 U/L (38-126) 03/10/24 05:58
Total Protein 5.4 g/dl (6.3-8.2) L 03/10/24 05:58
Albumin 3.4 g/dl (3.5-5.0) L 03/10/24 05:58
Physical Exam
-
GENERAL/NEURO: Awake, Alert, no distress
CHEST: Unlabored breathing on RA
ABDOMEN: Soft, Non-Tender, Non-Distended
[2024-03-10] MEDS: COLACE 100 MG PO (12:11)
[2024-03-10] MEDS: SENOKOT 8.6 MG PO (12:11)
--- NOTE | 2024-03-10 12:24 | W.DCSUMMARY ---
Discharge Summary
Discharge Data
Date of Admission: 03/07/24
Date of Discharge: 03/10/24
-
Pending Results: No
Hospital Course
73 years old female presented with abdominal pain. Patient was diagnosed with stercoral colitis and fecal burden. She had leukocytosis. Patient was seen by surgery. She was started on liquid diet with intravenous hydration. Patient received
laxative treatment including GoLytely with MiraLAX. Patient started to have bowel movements. Repeat abdominal radiography showed no abnormal intestinal dilation or free air- fluid levels with improved fecal burden compared to admission CAT scan.
Patient received empiric antibiotic. She started to feel better with resolution of abdominal pain. Diet was advanced as she tolerated diet well. She remained hemodynamically stable and was discharged in a stable condition.
Discharge Plan
-
Patient Disposition: Home (Routine Discharge)
Discharge Diagnosis/Procedures: stercoral colitis with large fecal burden/constipation
Diet: Regular
Additional Diets: Add more fiber into your diet and stay hydrated
Referrals:
Linda Smith MD [Family Provider] -
Prescriptions:
New
docusate sodium 100 mg capsule
100 mg PO BID Qty: 60 0RF
polyethylene glycol 3350 [HealthyLax] 17 gram Powder In Packet
17 g PO DAILY Qty: 30 0RF
sennosides [Senna Laxative] 8.6 mg Tablet
8.6 mg PO BIDPRN PRN (Reason: constipation) Qty: 30 0RF
Continued
atorvastatin 80 mg Tablet
80 mg PO DAILY
ezetimibe 10 mg Tablet
10 mg PO DAILY
Centrum Silver Women 8 mg iron-400 mcg-50 mcg Tablet
1 tab PO DAILY
Discontinued
loperamide [Imodium A-D] 2 mg Tablet
1 mg PO DAILY
Patient Comments:
03/07/24: Patient states she normally takes this routinely for leakage, but stopped once the current symptoms started.
polyethylene glycol 3350 [Miralax] 17 gram Powder In Packet
17 g PO DAILYPRN PRN (Reason: constipation)
Discharge Orders:
Discharge Patient (As Directed); Ordered 03/10/24
Ordered By: Yesica Cabral
Discharge Date and Time
Print Language: TURKISH
[2024-03-10 13:15] VITALS: BP 158/92
== END 2024-03-10 13:22 | disposition home or self-care (01) | DRG 392 ==
LOC: 3 WEST ACU 19:24
PROVIDERS: Clinical Nurse Specialist Family Health; ADMITTING PHYSICIAN Internal Medicine; ATTENDING PHYSICIAN Internal Medicine; CONSULT PHYSICIAN Surgery; EMERGENCY PHYSICIAN Emergency Medicine; FAMILY PHYSICIAN Student in an Organized Health Care Education/Training Program
DX: K52.89 Other specified noninfective gastroenteritis and colitis (principal); D80.1 Nonfamilial hypogammaglobulinemia; K57.32 Diverticulitis of large intestine without perforation or abscess without bleeding; E78.00 Pure hypercholesterolemia, unspecified; K63.89 Other specified diseases of intestine; K59.09 Other constipation; N28.1 Cyst of kidney, acquired; M51.37 Other intervertebral disc degeneration, lumbosacral region; N94.89 Other specified conditions associated with female genital organs and menstrual cycle; Z82.0 Family history of epilepsy and other diseases of the nervous system; Z82.49 Family history of ischemic heart disease and other diseases of the circulatory system
CPT/HCPCS: 74019; 80053; 83735; 84100; 85025; 96365; 97162; 97165; 99284

== ENCOUNTER → 2024-03-14 13:29 | Outpatient (REF) | payer MEDICARE, SELFPAY | LOC: WDC 13:29 | PROVIDERS: ATTENDING PHYSICIAN Student in an Organized Health Care Education/Training Program | DX: M85.88 Other specified disorders of bone density and structure, other site (principal); Z12.31 Encounter for screening mammogram for malignant neoplasm of breast; Z78.0 Asymptomatic menopausal state | CPT/HCPCS: 77063; 77067; 77080 ==

== ENCOUNTER → 2024-06-05 07:37 | Outpatient (REF) | payer MEDICARE, SELFPAY | LOC: RAD 07:37 | PROVIDERS: ATTENDING PHYSICIAN Internal Medicine Gastroenterology; FAMILY PHYSICIAN Student in an Organized Health Care Education/Training Program | DX: R15.9 Full incontinence of feces (principal) | CPT/HCPCS: 74270 ==

== ENCOUNTER 2024-07-14 06:40 | Day surgery (SDC) | payer MEDICARE, SELFPAY | END 2024-07-14 10:20 | disposition home or self-care (01) | LOC: GI 06:40 | PROVIDERS: ATTENDING PHYSICIAN Internal Medicine Gastroenterology | DX: Z12.11 Encounter for screening for malignant neoplasm of colon (principal); K64.0 First degree hemorrhoids; K57.30 Diverticulosis of large intestine without perforation or abscess without bleeding | CPT/HCPCS: G0121 ==

== ENCOUNTER 2024-10-01 06:29 | Day surgery (SDC) | payer MEDICARE, SELFPAY ==
[2024-10-01 07:02] VITALS: BMI 20.8
[2024-10-01 07:05] VITALS: BP 136/84
[2024-10-01 09:01] VITALS: BP 115/70
[2024-10-01 09:15] VITALS: BP 114/96
[2024-10-01 09:20] VITALS: BP 128/67
[2024-10-01 09:31] VITALS: BP 128/67
== END 2024-10-01 09:31 | disposition home or self-care (01) ==
LOC: SDS 06:29
PROVIDERS: ATTENDING PHYSICIAN Internal Medicine Gastroenterology
DX: Z12.11 Encounter for screening for malignant neoplasm of colon (principal); D12.3 Benign neoplasm of transverse colon; K57.30 Diverticulosis of large intestine without perforation or abscess without bleeding; K64.0 First degree hemorrhoids
CPT/HCPCS: 45385; 88305

== ENCOUNTER → 2024-11-20 14:12 | Outpatient (REF) | payer MEDICARE, SELFPAY | LOC: DHSLP 14:12 | PROVIDERS: ATTENDING PHYSICIAN Student in an Organized Health Care Education/Training Program | DX: G47.30 Sleep apnea, unspecified (principal); R06.83 Snoring | CPT/HCPCS: 95800 ==

== ENCOUNTER → 2025-03-16 13:30 | Outpatient (REF) | payer MEDICARE, SELFPAY | LOC: WDC 13:30 | PROVIDERS: ATTENDING PHYSICIAN Student in an Organized Health Care Education/Training Program | DX: Z12.31 Encounter for screening mammogram for malignant neoplasm of breast (principal) | CPT/HCPCS: 77063; 77067 ==